=== PATIENT | male | born 1950 | race Caucasian/White ===

== ENCOUNTER 2016-04-11 12:01 | Emergency (ER) | payer MEDICARE, OTHER ==
[2016-04-11] MEDS ORDERED: IOPAMIDOL 370 (76%) 100 ML VIAL IV ONE (12:02)
[2016-04-11] MEDS ORDERED: ASPIRIN CHEWTAB 81 MG TABLET ONE (12:26)
--- NOTE | 2016-04-11 12:53 | CT ---
HEAD W/O CON COMPARISON: None HISTORY: Slurred speech 2 hours ago, resolved. TECHNIQUE: Using a [employer] Aqu[employer] [address] scanner, images were obtained through the head. An automated dose reduction technique was used to minimize patient radiation dose. DOSE INFORMATION: CTDIvol (mGy): 51.70 DLP(mGycm): 938.90 FINDINGS: Mass: None Intracranial Hemorrhage: None Acute Infarction: None Cerebral hemispheres: Moderate atrophy. Basal ganglia: Normal Thalami: Normal Brainstem: Normal Cerebellum: Normal Ventricles: Moderate ventriculomegaly. Basilar cisterns: Expected with enlargement. Corpus callosum: Normal Pituitary fossa: Normal Middle ears and mastoid air cells: Normal Orbits and sinuses: Normal Skull and scalp: Normal Dural sinuses and vessels: Normal IMPRESSION: 1. Moderate cerebral atrophy plus evidence of moderate hydrocephalus. 2. No intracranial hemorrhage. 3. Benign 5 mm calcification left posterior tentorium cerebelli. The report was sent to the emergency department electronic medical record system 04/11/2016 at 12:54
[2016-04-11 13:12] LABS: ABSOLUTE NEUTROPHIL COUNT 4.7 K/mm3 (1.8-7.7); BASO # 0.1 K/mm3 (0.0-0.2); BASO % 0.8 % (0.2-1.0); EOS # 0.3 (0.0-0.5); EOS % 3.3 % (0.9-2.9); HEMATOCRIT 46.6 % (32.0-52.0); HEMOGLOBIN 15.3 gm/l (14.0-18.0); IMM NEUT% 0.1 % (0-1); LYMPH # 1.9 (1.0-4.8); LYMPH % 25.3 % (15-45); MEAN CELL VOLUME 90.1 fl (80.0-94.0); MEAN CORPUSCULAR HEMOGLOBIN 29.6 pg (27.0-31.0); MEAN CORPUSCULAR HGB CONC 32.8 g/dl (33.0-37.0); MONO # 0.7 (0.0-0.8); MONO % 8.6 % (4-12); NEUT % 61.9 % (43-75); PLATELET COUNT 218 K/mm3 (130-400); RED CELL DISTRIBUTION WIDTH 13.6 % (11.5-14.5)
[2016-04-11 13:21] LABS: ALB/GLOB RATIO 1.3 (>1.0); ALBUMIN 3.9 gm/dL (3.5-5.7)
[2016-04-11 13:28] LABS: PROTHROMBIN TIME 10.5 SECONDS (9.3-11.4)
[2016-04-11 14:44] LABS: SPECIFIC GRAVITY 1.015 (1.001-1.030); URINE BILIRUBIN NEGATIVE (NEGATIVE); URINE BLOOD NEGATIVE (NEGATIVE); URINE GLUCOSE (UA) NEGATIVE (NEGATIVE); URINE LEUKOCYTE ESTERASE NEGATIVE (NEGATIVE); URINE NITRITE NEGATIVE (NEGATIVE); URINE PROTEIN NEGATIVE (NEGATIVE); URINE UROBILINOGEN NORMAL (0-1 mg/dl)
[2016-04-11 14:47] LABS: URINE APPEARANCE CLOUDY; URINE COLOR YELLOW
--- NOTE | 2016-04-11 14:59 | CT ---
CTA CAROTID W/ POST PROCESS COMPARISON: None. HISTORY: Slurred speech, resolved 5 hours ago. TECHNIQUE: [id number] Aquilion [address] scanner. Intravenous injection 80 mL Isovue-370. Contrast-enhanced images obtained from the aortic arch to the skull base. Under concurrent supervision and interpretation, requiring a separate 3-D workstation, the nuclear technologist created 3-D CT angiograms. An automated dose reduction technique was used to minimize patient radiation dose. Dose information: CTDIvol (mGy): 76.10 DLP(mGycm): 3219.60 FINDINGS: Aortic arch: Normal. Brachiocephalic artery: Normal. Right common carotid artery: Normal. Right internal carotid artery: Mild plaquing but less than 50% stenosis at the origin. Right external carotid artery: Normal. Right vertebral artery: Greater than 90% stenosis at the origin of the right vertebral artery. Right subclavian artery: Normal. Left subclavian artery: Normal. Left common carotid artery: Normal. Left internal carotid artery: Minimal soft plaquing with less than 50% diameter stenosis at the origin. Left external carotid artery: Normal. Left vertebral artery: Normal. Internal jugular veins: Normal. Airway: Normal Lymph nodes: Normal Salivary glands: Normal Thyroid gland: Normal. Muscles: Normal. Spine: C5-6 severe spondylosis. Superior mediastinum: Normal Lung apices: Normal. IMPRESSION: 1. Greater than 90% stenosis at the origin of the right vertebral artery. Calculated using NASCET criteria. 2. Less than 50% stenosis at the origins of the right and left internal carotid arteries. Calculated using NASCET criteria. 3. Incidental findings include C5-6 severe spondylosis. The results were discussed with Julio Ponce M.D., 04/11/2016 at 14:50
--- NOTE | 2016-04-11 15:02 | CT ---
CTA HEAD W/ POST PROCESS 04/11/2016 at 14:09 COMPARISON: Head CT without contrast, 04/11/2016 at 12:32 HISTORY: Slurred speech, resolved 5 hours ago. TECHNIQUE: [employer] Aqu[employer] [address] scanner. Unenhanced images obtained through the head. Intravenous injection 80 mL Isovue-370. Contrast-enhanced images obtained. Under concurrent supervision and interpretation, requiring a separate 3-D workstation, the electroencephalogram technologist created 3-D CT angiograms. An automated dose reduction technique was used to minimize patient radiation dose. Dose information: CTDIvol (mGy): 76.10 DLP(mGycm): 3219.60 FINDINGS: Intracranial hemorrhage: None. Mass: None. Cerebral hemispheres: Moderate atrophy. Basal ganglia: Normal. Thalami: Normal. Brainstem: Normal. Cerebellum: Normal. Ventricles: Moderate ventriculomegaly. Cisterns: Extra-axial enlargement. Corpus callosum: Normal. Pituitary fossa: Normal. Middle ears and mastoid air cells: Normal. Orbits and sinuses: Normal orbits. Mild mucosal thickening in the ethmoid air cells. Skull and scalp: Normal. Dural sinuses: Normal. 3-D CT angiogram findings: Atherosclerotic calcific plaquing of the right and left carotid siphons. Less than 50% diameter stenosis using NASCET criteria. No vessel occlusion. Normal [place]. No arteriovenous malformation. No aneurysm. IMPRESSION: Atherosclerotic calcific plaquing of the right and left carotid siphons. Less than 50% diameter stenosis using NASCET criteria. No other change. The results were discussed with Julio Ponce M.D., 04/11/2016 at 14:50.
[2016-04-11 15:16] LABS: URINE BACTERIA NONE SEEN; URINE EPITHELIAL CELLS 0-2 /hpf; URINE RBC 0-2 /hpf; URINE WBC 0-2 /hpf
[2016-04-11 15:17] LABS: URINE AMORPHOUS SEDIMENT MANY
== END 2016-04-11 15:52 | disposition home or self-care (01) ==
LOC: ED 12:01
DX: G45.9 Transient cerebral ischemic attack, unspecified (principal); I65.01 Occlusion and stenosis of right vertebral artery; I10 Essential (primary) hypertension
CPT/HCPCS: 85025; 80053; 85610; 84484; 81001; 70450; 70496; 70498; 99284 ×2; 93005; A9270; Q9967